=== PATIENT | female | born 1950 ===

== ENCOUNTER → 2018-08-15 08:27 | Day surgery (SDC) | payer MEDICARE ==
--- NOTE | 2018-08-08 17:06 | HP ---
HISTORY AND PHYSICAL: ADDENDUM: PHYSICAL EXAMINATION VITAL SIGNS: Temperature is 97.3. Pain is 7. BMI is 30.2. HEENT: Normocephalic, atraumatic. PERRLA. EOMI. Throat is clear. NECK: Supple. No palpable lymph nodes. PULMONARY: Lungs are clear to auscultation bilaterally. No wheezes, rales, or rhonchi. CARDIO: RRR. S1 and S2 heard. No murmurs, rubs, or gallops. No edema. ABDOMEN: Positive bowel sounds. Soft and nontender. NEUROLOGIC: A and O x3. Cranial nerves II through XII intact. Sensation to light touch is intact. MUSCULOSKELETAL: Bilateral upper extremities: Skin is intact with no erythema or edema to the hands or wrists bilaterally. There is some left thenar atrophy when compared to the right. Full active r sherie of motion and resisted range of motion for all digits and wrists bilaterally. Good pipe layer strengt h. Negative Tinel's at the wrist and elbow bilaterally. Positive Phalen's bilaterally. Sensate to light touch today over radial, median, and ulnar nerve distributions. Radial pulses brisk, 2+. IMPRESSION: Bilateral carpal tunnel syndrome. PLAN: The patient is scheduled to undergo a left wrist carpal tunnel release with Dr. Sorenson on 08/15. The procedure as well as the risks and benefits were discussed with the patient and she agrees to proceed. She will return to the office 10 days postop for followup and suture removal. A prescri ption for Ultracet was e-scribed to the patient's pharmacy for postoperative pain management. The asia larson does see a switch box installer every 6 months for her kidney transplant followup and she was told at [facility] last appointment that she was doing well and her next appointment with him is on 09/08/18. ASIA GAITAN [id number]/[facility] #: [id number]
--- NOTE | 2018-08-08 17:06 | HP ---
Amended report to enter cosigning physician. HISTORY AND PHYSICAL: DATE OF ADMISSION/SURGERY: 08/15/18 DATE OF OFFICE VISIT: 08/07/18 SURGEON: Dr. Shandra Sorenson* (dictated by ASIA Lerma). PROCEDURE: Left wrist carpal tunnel release. HISTORY OF PRESENT ILLNESS: Charlee is a pleasant left-hand dominant 67-year- old female presenting today with bilateral hand numbness and tingling. She states that she was diagnosed with carpal tunnel syndrome when she was over 30 years ago and it calmed down, but it has recently started to bother her again in the past 2 years. She contributes this to taking care of her granddaughter. She says that the left bothers her more than the right, wakes her up at night and makes it hard to sleep. She has tried braces, but they did not seem to work. She has no pain associated and she denies any neck or elbow pain. She has never had any cortisone injections, but she is interested in more definitive solution now that she has time to have surgery. Past medical history is significant for kidney transplant due to a kidney/bladder issue that she had from . She was on dialysis prior to the transplant and has had a fistula near her right wrist. She also has RA in both hands. PAST MEDICAL HISTORY: Hypercholesterolemia, breast cancer, chronic kidney disease, and rheumatoid arthritis. PAST SURGICAL HISTORY: Kidney transplant in 1981, breast surgery at unknown date, total knee replacement at unknown date, left triceps repair in 2003, right fistula in 1976. MEDICATIONS: 1. Imuran 50 mg 1-1/2 tabs p.o. daily. 2. Prednisone 10 mg p.o. every other day. 3. Bactrim 400/80 Saturday, Saturday, Saturday. 4. Atorvastatin 20 mg 1 p.o. daily. 5. Gabapentin 600 mg p.o. 4 times daily. 6. Aspirin 81 mg p.o. daily. 7. Vitamin C 1000 mg p.o. daily. 8. Calcium with vitamin D 600 mg twice daily. ALLERGIES: NSAIDS with unknown reaction. FAMILY HISTORY: Positive for diabetes and cancer. SOCIAL HISTORY: She is retired and lives at home with her spouse. She denies any tobacco, alcohol, or recreational drug use. She drinks a few cups of coffee a day. REVIEW OF SYSTEMS: General: Negative for fevers, chills, night sweats, unexplained weight loss or gain. No known anesthesia problems. HEENT: Negative for headache, lightheadedness, syncopal episodes, visual changes. Integumentary: Negative for abrasions, lesions, open wounds. Cardiothoracic: Negative for hypertension, chest pain, palpitations, edema. Respiratory: Negative for shortness of breath with exertion, chronic cough, wheezing. GI: Negative for nausea, vomiting, diarrhea, constipation, and GERD. : Positive for history of UTIs and history of kidney problems. Negative for nocturia, urinary frequency, urgency. Musculoskeletal: Positive for bilateral hand numbness, tingling. Positive for history of fractures, femur and tibia. Neurologic: Positive for neuropathy in both feet. Negative for history of seizure, stroke, poor balance. Negative for anxiety or depression. Endocrine: Negative for diabetes or thyroid issues. Hematologic: Negative for easy bruising, anemia, bleeding disorders, history of DVT or PE. ID: Negative for history of MRSA, hep C, or HIV. PHYSICAL EXAMINATION GENERAL: Well-developed, well-nourished, 67-year-old female, in no acute distress. VITAL SIGNS: Height 61, weight . Temperature is 97.3. Pain is 7. BMI is 30.2. HEENT: Normocephalic, atraumatic. PERRLA. EOMI. Throat is clear. NECK: Supple. No palpable lymph nodes. PULMONARY: Lungs are clear to auscultation bilaterally. No wheezes, rales, or rhonchi. CARDIO: RRR. S1 and S2 heard. No murmurs, rubs, or gallops. No edema. ABDOMEN: Positive bowel sounds. Soft and nontender. NEUROLOGIC: A and O x3. Cranial nerves II through XII intact. Sensation to light touch is intact. MUSCULOSKELETAL: Bilateral upper extremities: Skin is intact with no erythema or edema to the hands or wrists bilaterally. There is some left thenar atrophy when compared to the right. Full active range of motion and resisted range of motion for all digits and wrists bilaterally. Good credit specialist strength. Negative Tinel's at the wrist and elbow bilaterally. Positive Phalen's bilaterally. Sensate to light touch today over radial, median, and ulnar nerve distributions. Radial pulses brisk, 2+. IMPRESSION: Bilateral carpal tunnel syndrome. PLAN: The patient is scheduled to undergo a left wrist carpal tunnel release with Dr. Sorenson on 08/15/18. The procedure as well as the risks and benefits were discussed with the patient and she agrees to proceed. She will return to the office 10 days postop for followup and suture removal. A prescription for Ultracet was e-scribed to the patient's pharmacy for postoperative pain management. The patient does see a facilities locator every 6 months for her kidney transplant followup and she was told at her last appointment that she was doing well and her next appointment with him is on 09/08/18. ASIA GAITAN [id number]/[facility] #: [id number]/[facility] #: [id number]/[facility] #: [id number] ELENA
--- NOTE | 2018-08-08 17:23 | HP ---
HISTORY AND PHYSICAL: ADDENDUM: REVIEW OF SYSTEMS: Neurologic: Positive for neuropathy in both feet. Negative for history of seizu re, stroke, poor balance. Negative for anxiety or depression. Endocrine: Negative for diabetes or t hyroid issues. Hematologic: Negative for easy bruising, anemia, bleeding disorders, history of DVT or PE. ID: Negative for history of MRSA, hep C, or HIV. PHYSICAL EXAMINATION GENERAL: Well-developed, well-nourished, 67-year-old female, in no acute distress. VITAL SIGNS: Height 61, weight DICTATION ENDS ABRUPTLY ASIA GAITAN [id number]/[facility] #: [id number]
[~2018-08-15 08:27] MED LIST: Acetaminophen IV 1GM/100ML * 100 ML ONE; Buffered Lidocaine 1% SYRIN* 1 ML/SYRINGE INTRADERM ONE; Dexamethasone TAB* 4 MG ONE; Dexamethasone TAB* 4 MG PO ONE; DiMENhydriNATE IV* 50 MG/ML VIAL IV PUSH PRN; Famotidine IV* 10 MG/ML 2 ML (20 mg) IV ONE; Famotidine IV* 10 MG/ML 2 ML (20 mg) ONE; KETAMINE HCL* 50 MG/ML 10 ML VIAL ONE; Lactated Ringers 1000 ML Bag* 1,000 ML IV SCH; Lidocaine 1% INJ* 10 MG/ML 30 ML SDV ONE; Lidocaine 2% PF * 5 ML VIAL ONE; Midazolam* 1 MG/ML 5 ML VIAL (5 MG) ONE; Naloxone* 0.4 MG/ML 1 ML VIAL IV PRN; Ondansetron ODT TAB* 4 MG ONE; Ondansetron TAB* 4 MG PO ONE; PROCHLORPERAZINE INJ 5 MG/ML 2 ML VIAL IV PRN; Propofol* 10 MG/ML 20 ML BTL ONE; fentaNYL* 50 MCG/ML 2 ML VIAL (100 MCG VIAL) IV PRN; fentaNYL* 50 MCG/ML 2 ML VIAL (100 MCG VIAL) ONE; oxyCODONE/Acetamin 5/325 MG* TAB PO PRN
[2018-08-15 12:13] VITALS: BP 127/84
--- NOTE | 2018-08-15 13:09 | OP ---
CC: Dr. Sorenson OPERATIVE REPORT: DATE OF OPERATION: 08/15/18 DATE OF : 50 SURGEON: Shandra Sorenson MD SHANK STITCHER: ASIA Ryan ANESTHESIA: Local MAC. PRE-OP DIAGNOSIS: Left carpal tunnel syndrome. POST-OP DIAGNOSIS: Left carpal tunnel syndrome. OPERATIVE PROCEDURE: Left carpal tunnel release. ESTIMATED BLOOD LOSS: Zero. TOURNIQUET TIME: Approximately 8 minutes. INDICATIONS FOR PROCEDURE: Charlee is a 67-year-old female who has numbness and tingling in the media n nerve distribution of her left hand. She presents for left carpal tunnel release. DESCRIPTION OF PROCEDURE: The patient was brought to the operating room, was given a sedation anesth etic and a local infiltration of 10 cc of 1% plain lidocaine in the palm of her left hand. The skin of her left hand and forearm was prepped and draped in usual sterile fashion. The hand and forearm w ere exsanguinated and the tourniquet elevated to 250 mmHg. A longitudinal incision was made in the p celia of the hand in line with the ring finger. We dissected through the subcutaneous tissue down to t he transverse carpal ligament. The ligament was divided sharply with a knife and then more proximall y with the scissors. The nerve was dissected free from the surrounding tissue and there was an area of moderate compression at the mid portion of the ligament. The wound was irrigated and the skin edg es reapproximated with 4-0 nylon suture. The wound was dressed with Xeroform, 4x4, Webril, and an Ac e wrap. The patient tolerated the procedure well and was brought to the recovery room in good condit ion. [id number]/[facility] #: [id number]
== END | disposition home or self-care (01) ==
LOC: OR 08:27
PROVIDERS: ATTEND Orthopaedic Surgery
DX: G56.02 Carpal tunnel syndrome, left upper limb (principal); Z85.3 Personal history of malignant neoplasm of breast; E78.00 Pure hypercholesterolemia, unspecified; N18.9 Chronic kidney disease, unspecified; M06.9 Rheumatoid arthritis, unspecified; Z94.0 Kidney transplant status
CPT/HCPCS: A9270-GY; J2250; J2704; J3010; J8540

== ENCOUNTER 2018-12-19 09:21 | Day surgery (SDC) | payer MEDICARE ==
--- NOTE | 2018-12-15 10:14 | HP ---
PREOPERATIVE HISTORY AND PHYSICAL: DATE OF SURGERY/ADMISSION: 12/19/18 DATE OF OFFICE VISIT/ENCOUNTER: 12/10/18 ATTENDING SURGEON: Shandra Sorenson MD * (DICTATED BY ASIA STEPHENS) PROCEDURE: Right wrist carpal tunnel release. HISTORY OF PRESENT ILLNESS: This is a 68-year-old female who is complaining of numbness and tingling in her right hand. This has been ongoing for over 2 years now and symptoms are progressively worsening. She has tried wearing a wrist brace, but that was not very helpful. She denies any neck or elbow pain. She recently underwent a left wrist carpal tunnel release and now is interested in pursuing a right wrist carpal tunnel release. Past medical history significant for kidney transplant due to a kidney/bladder issue that she had from . She was on dialysis prior to the transplant and has had a fistula near her right wrist. PAST MEDICAL HISTORY: 1. Hypercholesterolemia. 2. Breast cancer. 3. Chronic kidney disease. 4. Rheumatoid arthritis. 5. Diabetes. PAST SURGICAL HISTORY: 1. Kidney transplant in 1981 due to a kidney/bladder issue that was present from . 2. Breast surgery. 3. Total knee arthroplasty. 4. Left triceps repair. 5. Right upper extremity fistula. 6. Left carpal tunnel release. CURRENT MEDICATIONS: 1. Aspirin 81 mg daily. 2. Atorvastatin calcium 20 mg daily. 3. Azathioprine 50 mg daily. 4. Calcium 600 plus vitamin D two tabs daily. 5. Gabapentin 600 mg daily. 6. Metformin HCl ER 500 mg daily. 7. Prednisone 5 mg 1 tab every other day. 8. Vitamin C 1000 mg daily. ALLERGIES: Nonsteroidal anti-inflammatory drugs, reaction unknown. FAMILY MEDICAL HISTORY: Diabetes and cancer. SOCIAL HISTORY: She is retired and lives at home with her spouse. She denies tobacco use and recreational drug use. She drinks alcohol on rare occasion. REVIEW OF SYSTEMS: Negative for general, cephalic, cardiovascular, respiratory , GI, , other musculoskeletal, integumentary, endocrine, neurologic, and hematologic symptoms, infectious disease. Negative for MRSA, hepatitis C, HIV. PHYSICAL EXAMINATION GENERAL: Well-developed, well nourished 68-year-old female, in on acute distress. She is alert and oriented x3. VITAL SIGNS: Height 5 feet 1 inch, weight 161 pounds, pulse rate 71, blood pressure 124/82. HEENT: Normocephalic, atraumatic. Pupils are equal, round and reactive to light and accommodation. NECK: Supple. No palpable lymph nodes. Throat is clear. PULMONARY: Lungs are clear to auscultation bilaterally. No wheezes, rales or rhonchi. CARDIOVASCULAR : Regular rate and rhythm. S1, S2. No murmurs, rubs or gallop. No edema. ABDOMEN: Positive bowel sounds, soft, nontender. MUSCULOSKELETAL: On exam of her right upper extremity, there is mild thenar wasting noted and weakness with thumb abduction. Skin is intact. Good range of motion in her wrist and fingers. Positive Phalen's test. Positive Tinel test at the median nerve at the right wrist. Negative Tinel's at the elbow. Sensation is intact to light touch throughout the hand. NEUROLOGIC: Alert and oriented x3. Cranial nerves II through XII are intact. IMPRESSION: Right carpal tunnel syndrome. PLAN: The patient is scheduled to undergo a right wrist carpal tunnel release with Dr. Sorenson on 12/19/18. She will return to the office in 10 days postop for followup and suture removal. Prescription for tramadol was e-scribed to the patient's pharmacy for postoperative pain management. ASIA STEPHENS [id number]/[facility] #: [id number] MTDD
[~2018-12-19 09:21] MED LIST changes: -Acetaminophen IV 1GM/100ML * 100 ML ONE; -Dexamethasone TAB* 4 MG ONE; -Dexamethasone TAB* 4 MG PO ONE; -KETAMINE HCL* 50 MG/ML 10 ML VIAL ONE; -Lidocaine 1% INJ* 10 MG/ML 30 ML SDV ONE; -Lidocaine 2% PF * 5 ML VIAL ONE; -Midazolam* 1 MG/ML 5 ML VIAL (5 MG) ONE; +Ondansetron ODT TAB* 4 MG PO ONE; -Ondansetron TAB* 4 MG PO ONE; -Propofol* 10 MG/ML 20 ML BTL ONE; -fentaNYL* 50 MCG/ML 2 ML VIAL (100 MCG VIAL) ONE
[2018-12-19] MEDS ORDERED: Lidocaine 1% INJ* 10 MG/ML 30 ML SDV ONE (10:08)
[2018-12-19] MEDS ORDERED: Midazolam* 1 MG/ML 5 ML VIAL (5 MG) ONE (10:31)
[2018-12-19] MEDS ORDERED: fentaNYL* 50 MCG/ML 2 ML VIAL (100 MCG VIAL) ONE (10:31)
[2018-12-19] MEDS ORDERED: Propofol* 10 MG/ML 20 ML BTL ONE (11:18)
[2018-12-19] MEDS ORDERED: Lidocaine 2% PF * 5 ML VIAL ONE (11:18)
[2018-12-19 11:37] VITALS: BP 122/79
--- NOTE | 2018-12-19 16:22 | OP ---
CC: Dr. Sorenson OPERATIVE REPORT: DATE OF OPERATION: 12/19/18 DATE OF : 50 SURGEON: Shandra Sorenson MD. CEMENT GRINDING MILL OPERATOR: ASIA Ryan. ANESTHESIA: Local MAC. PRE-OP DIAGNOSIS: Right carpal tunnel syndrome. POST-OP DIAGNOSIS: Right carpal tunnel syndrome. OPERATIVE PROCEDURE: Right carpal tunnel release. ESTIMATED BLOOD LOSS: Zero. TOURNIQUET TIME: Approximately 10 minutes. INDICATION FOR PROCEDURE: Charlee is a 68-year-old female who has numbness and tingling in the median nerve distribution of her right hand. She presents for right carpal tunnel release. DESCRIPTION OF PROCEDURE: The patient was brought to the operating room and was given a sedation ane sthetic and a local infiltration of 10 cc of 1% plain lidocaine in the palm of her right hand. The s kin of her right hand and forearm was prepped and draped in the usual sterile fashion. The hand and forearm were exsanguinated and the tourniquet elevated to 250 mmHg. A longitudinal incision was made in the palm in line with the ring finger. We dissected through the subcutaneous tissue down to the transverse carpal ligament. The ligament was divided sharply with a knife and then more proximally w ith a scissors. The nerve was dissected free from the surrounding tissue and there is an area of mod erate compression in the mid portion of the ligament. The wound was irrigated and the skin edges brianda pproximated with 4-0 nylon suture. The wound was dressed with Xeroform, 4x4, Webril, and an Nahid wrap . The patient tolerated the procedure well and was brought to the recovery room in good condition. [id number]/[facility] #: [id number]
== END 2018-12-19 12:02 | disposition home or self-care (01) ==
LOC: OREAST 09:21
PROVIDERS: ATTEND Orthopaedic Surgery
DX: G56.01 Carpal tunnel syndrome, right upper limb (principal); E78.5 Hyperlipidemia, unspecified; Z85.3 Personal history of malignant neoplasm of breast; E11.9 Type 2 diabetes mellitus without complications; Z79.84 Long term (current) use of oral hypoglycemic drugs; N18.9 Chronic kidney disease, unspecified; M06.9 Rheumatoid arthritis, unspecified; Z94.0 Kidney transplant status
CPT/HCPCS: A9270-GY; J2250; J2704; J3010